=== PATIENT | female | born 1955 | race Caucasian/White ===

== ENCOUNTER 2016-10-10 16:38 | Emergency (ER) | payer BC ==
[2016-10-10] MEDS ORDERED: Albuterol/Ipratropium NEB.SOL* Albuterol 2.5 MG/Ipratropium 0.5 MG 3 ML INH ONE (17:17)
[2016-10-10 17:36] LABS: Hematocrit 45 % (35-47); Hemoglobin 14.9 g/dl (12.0-16.0); Mean Corpuscular HGB Conc 33 g/dl (31-36); Mean Corpuscular Hemoglobin 30 pg (27-31); Mean Corpuscular Volume 90 fL (80-97); Mean Platelet Volume 8 um3 (7.4-10.4); Red Blood Count 4.93 10^6/ul (4.0-5.4); Red Cell Distribution Width 13 % (10.5-15); White Blood Count 15.2 10^3/ul (3.5-10.8)
[2016-10-10 17:54] LABS: Albumin 3.9 g/dL (3.2-5.2); BUN/Creatinine Ratio 38.2 (8-20); C Reactive Protein 66.77 mg/L (< 5.00); Calcium 8.9 mg/dL (8.6-10.3); Globulin 2.8 g/dL (2-4); Magnesium 1.6 mg/dL (1.9-2.7); Potassium 3.8 mmol/L (3.5-5.0); Total Bilirubin 0.5 mg/dL (0.2-1.0); Total Protein 6.7 g/dL (6.4-8.9)
--- NOTE | 2016-10-10 18:00 | RAD ---
Indication: Shortness of breath, chest congestion. History of smoking. Comparison: April 09, 2008 Technique: Upright AP 1738 hours Report: Elevated lung volumes and mild prominence of interstitial markings. Costochondral calcifications noted. While costochondral calcification may account for the opacity a true approximate 1 cm pulmonary nodule in the RIGHT mid to lower lung zone is not excluded. Negative for pleural effusion. Negative for pneumothorax. The heart, pulmonary vasculature, and mediastinal contours are unremarkable. IMPRESSION: Stigmata of chronic obstructive pulmonary disease. No compelling evidence for pneumonia. While costochondral calcification may account for the opacity a true approximate 1 cm pulmonary nodule in the RIGHT mid to lower lung zone is not excluded. Consider dual energy PA and lateral chest radiographs for further assessment.
[2016-10-10] MEDS ORDERED: Azithromycin IV(*) 500 MG in NS 0.9% 250 ML* 250 ML IVPB ONE (18:07)
[2016-10-10] MEDS ORDERED: cefTRIAXone(*) 1 GM in NS 0.9% 50 ML* 50 ML IVPB ONE (18:07)
[2016-10-10 18:10] LABS: TSH (Thyroid Stimulating Horm) 2.68 mcIU/mL (0.34-5.60)
[2016-10-10] MEDS: NS 0.9% 1000 ML* 2,000 ML IV ONE (18:11)
[2016-10-10] MEDS ORDERED: Iohexol 350* (CONTRAST) 500 ML MDV IV ONE (18:27)
--- NOTE | 2016-10-10 19:22 | RAD ---
INDICATION: Body aches, shortness of breath, elevated d-dimer. COMPARISON: None. TECHNIQUE: Scott scale, color Doppler, and spectral analysis of the deep veins of the bilateral lower extremities. Vessel compression, phasicity, and augmentation assessed. REPORT: Poor tolerance for sonographic compression moderate limits assessment of the bilateral femoral veins. The right common femoral, great saphenous, profunda femoral, femoral, popliteal, peroneal, and posterior tibial veins are grossly patent. The left common femoral, great saphenous, profunda femoral, femoral, popliteal, peroneal, and posterior tibial veins are grossly patent. IMPRESSION: No compelling evidence for right or left lower extremity deep venous thrombosis.
[2016-10-10] MEDS ORDERED: methylPREDNISolone 125 MG* 2 ML VIAL IV ONE (20:18)
[2016-10-10] MEDS ORDERED: Albuterol HFA INHALER* 8 gm MDI INH ONE (20:20)
[2016-10-10] MEDS ORDERED: Rivaroxaban TAB(*) 15 MG PO ONE ×2 (20:22)
[2016-10-10 21:10] VITALS: BP 122/73
--- NOTE | 2016-10-10 23:01 | ED ---
Tanya Orellana Claudia, scribed for Luis F Farah MD on 10/10/16 at 1719 . Complex/Multi-Sys Presentation - HPI Summary HPI Summary: 61 year old female presents to the ED with multi-Sx. Pt notes that she woke up this am with sudden onset of Sx. Sx included overall body aches, SOB, and "hot flashes", diarrhea, and subjective fever. She denies any cough, nausea, vomiting , abd pain and wheezing. She notes no alleviation in her Sx even after taking Mucinex and Aleve earlier today. Pt describes her body aches as muscle spasms that could be from exercise except she doesn't exercise. Pt denies PMHx of Asthma or COPD. SHx: Heavy Tobacco Smoker - History Of Current Complaint Chief Complaint: EDShortnessOfBreath Time Seen by Provider: 10/10/16 17:07 Hx Obtained From: Patient Onset/Duration: Sudden Onset, Lasting Days - today, Still Present Timing: Constant Associated Signs And Symptoms: Positive: SOB, Diarrhea, Fever. Negative: Syncope, Cough, Nausea, Vomiting - Allergies/Home Medications Allergies/Adverse Reactions: Allergies Allergy/AdvReac Type Severity Reaction Status Date / Time No Known Allergies Allergy Verified 10/10/16 17:40 PMH/Surg Hx/FS Hx/Imm Hx Previously Healthy: Yes Endocrine/Hematology History: Denies: Hx Diabetes Cardiovascular History: Denies: Hx Hypertension Respiratory History: Denies: Hx Asthma, Hx Chronic Obstructive Pulmonary Disease (COPD) Infectious Disease History: No Infectious Disease History: Denies: Traveled Outside the [place] in Last 30 Days - Family History Family History: COPD,Asthma - Social History Lives: With Family Alcohol Use: None Hx Substance Use: No Substance Use Type: Reports: None Hx Tobacco Use: Yes Smoking Status (MU): Heavy Every Day Tobacco Smoker Review of Systems Positive: Fever Eyes: Negative ENT: Negative Cardiovascular: Negative Positive: Shortness Of Breath. Negative: Cough Positive: Diarrhea. Negative: Abdominal Pain, Vomiting, Nausea Genitourinary: Negative Musculoskeletal: Negative Skin: Negative Neurological: Negative Psychological: Normal All Other Systems Reviewed And Are Negative: Yes Physical Exam Triage Information Reviewed: Yes Vital Signs On Initial Exam: Initial Vitals Temp Pulse Resp BP Pulse Ox 99.6 F 111 24 123/78 95 10/10/16 16:43 10/10/16 16:43 10/10/16 16:43 10/10/16 16:43 10/10/16 16:43 Vital Signs Reviewed: Yes Appearance: Positive: Well-Appearing, No Pain Distress Skin: Positive: Warm, Skin Color Reflects Adequate Perfusion, Dry Head/Face: Positive: Normal Head/Face Inspection Eyes: Positive: EOMI, GARRISON ENT: Positive: Normal ENT inspection Neck: Positive: Supple, Nontender Respiratory/Lung Sounds: Positive: Breath Sounds Present, Wheezes - occasional, Other - mild respiratory distress Cardiovascular: Positive: RRR Abdomen Description: Positive: Nontender, Soft Musculoskeletal: Positive: Strength/ROM Intact Neurological: Positive: Normal, Sensory/Motor Intact, Alert, Oriented to Person Place, Time Psychiatric: Positive: Affect/Mood Appropriate Diagnostics - Vital Signs Vital Signs Temp Pulse Resp BP Pulse Ox 10/10/16 16:43 99.6 F 111 24 123/78 95 - Laboratory Lab Results: Lab Results 10/10/16 10/10/16 10/10/16 Range/Units 17:20 17:20 17:20 WBC 15.2 H (3.5-10.8) 10^3/ul RBC 4.93 (4.0-5.4) 10^6/ul Hgb 14.9 (12.0-16.0) g/dl Hct 45 (35-47) % MCV 90 (80-97) fL MCH 30 (27-31) pg MCHC 33 (31-36) g/dl RDW 13 (10.5-15) % Plt Count 364 (150-450) 10^3/ul MPV 8 (7.4-10.4) um3 Neut % (Auto) 89.0 H (38-83) % Lymph % (Auto) 4.1 L (25-47) % Hoke % (Auto) 6.2 (1-9) % Eos % (Auto) 0.5 (0-6) % Baso % (Auto) 0.2 (0-2) % Absolute Neuts (auto) 13.5 H (1.5-7.7) 10^3/ul Absolute Lymphs (auto) 0.6 L (1.0-4.8) 10^3/ul Absolute Monos (auto) 0.9 H (0-0.8) 10^3/ul Absolute Eos (auto) 0.1 (0-0.6) 10^3/ul Absolute Basos (auto) 0 (0-0.2) 10^3/ul Absolute Nucleated RBC 0 10^3/ul Nucleated RBC % 0 INR (Anticoag Therapy) 1.02 (0.89-1.11) APTT 28.2 (26.0-36.3) seconds D-Dimer, Quantitative 940 H (Less Than 230) ng/mL Sodium 131 L (133-145) mmol/L Potassium 3.8 (3.5-5.0) mmol/L Chloride 99 L (101-111) mmol/L Carbon Dioxide 26 (22-32) mmol/L Anion Gap 6 (2-11) mmol/L BUN 21 (6-24) mg/dL Creatinine 0.55 (0.51-0.95) mg/dL Est GFR ( Amer) 144.0 (>60) Est GFR (Non-Af Amer) 112.0 (>60) BUN/Creatinine Ratio 38.2 H (8-20) Glucose 117 H (70-100) mg/dL Lactic Acid (0.5-2.0) mmol/L Calcium 8.9 (8.6-10.3) mg/dL Magnesium 1.6 L (1.9-2.7) mg/dL Total Bilirubin 0.50 (0.2-1.0) mg/dL AST 19 (13-39) U/L ALT 25 (7-52) U/L Alkaline Phosphatase 89 (34-104) U/L Total Creatine Kinase 102 (10-223) U/L CK-MB (CK-2) 4.1 (0.6-6.3) ng/mL Troponin I 0.00 (<0.04) ng/mL C-Reactive Protein 66.77 H (< 5.00) mg/L B-Natriuretic Peptide ( - 100) pg/mL Total Protein 6.7 (6.4-8.9) g/dL Albumin 3.9 (3.2-5.2) g/dL Globulin 2.8 (2-4) g/dL Albumin/Globulin Ratio 1.4 (1-3) Lipase 20 (11.0-82.0) U/L TSH 2.68 (0.34-5.60) mcIU/mL Influenza A (Rapid) (Negative) Influenza B (Rapid) (Negative) 10/10/16 10/10/16 10/10/16 Range/Units 17:20 17:20 17:29 WBC (3.5-10.8) 10^3/ul RBC (4.0-5.4) 10^6/ul Hgb (12.0-16.0) g/dl Hct (35-47) % MCV (80-97) fL MCH (27-31) pg MCHC (31-36) g/dl RDW (10.5-15) % Plt Count (150-450) 10^3/ul MPV (7.4-10.4) um3 Neut % (Auto) (38-83) % Lymph % (Auto) (25-47) % Hoke % (Auto) (1-9) % Eos % (Auto) (0-6) % Baso % (Auto) (0-2) % Absolute Neuts (auto) (1.5-7.7) 10^3/ul Absolute Lymphs (auto) (1.0-4.8) 10^3/ul Absolute Monos (auto) (0-0.8) 10^3/ul Absolute Eos (auto) (0-0.6) 10^3/ul Absolute Basos (auto) (0-0.2) 10^3/ul Absolute Nucleated RBC 10^3/ul Nucleated RBC % INR (Anticoag Therapy) (0.89-1.11) APTT (26.0-36.3) seconds D-Dimer, Quantitative (Less Than 230) ng/mL Sodium (133-145) mmol/L Potassium (3.5-5.0) mmol/L Chloride (101-111) mmol/L Carbon Dioxide (22-32) mmol/L Anion Gap (2-11) mmol/L BUN (6-24) mg/dL Creatinine (0.51-0.95) mg/dL Est GFR ( Amer) (>60) Est GFR (Non-Af Amer) (>60) BUN/Creatinine Ratio (8-20) Glucose (70-100) mg/dL Lactic Acid 0.8 (0.5-2.0) mmol/L Calcium (8.6-10.3) mg/dL Magnesium (1.9-2.7) mg/dL Total Bilirubin (0.2-1.0) mg/dL AST (13-39) U/L ALT (7-52) U/L Alkaline Phosphatase (34-104) U/L Total Creatine Kinase (10-223) U/L CK-MB (CK-2) (0.6-6.3) ng/mL Troponin I (<0.04) ng/mL C-Reactive Protein (< 5.00) mg/L B-Natriuretic Peptide 13 ( - 100) pg/mL Total Protein (6.4-8.9) g/dL Albumin (3.2-5.2) g/dL Globulin (2-4) g/dL Albumin/Globulin Ratio (1-3) Lipase (11.0-82.0) U/L TSH (0.34-5.60) mcIU/mL Influenza A (Rapid) Negative (Negative) Influenza B (Rapid) Negative (Negative) Result Diagrams: 10/10/16 17:20 10/10/16 17:20 Lab Statement: Any lab studies that have been ordered have been reviewed, and results considered in the medical decision making process. - Radiology CXR Xray Interpretation: Positive (See Comments) - STIGMATA OF COPD. NO COMPELLING EVIDENCE FOR PNEUMONIA. WHILE COSTOCHONDRAL CALCIFICATION MAY ACCOUNT FOR THE OPACITY A TRUE APPROXIMATE 1CM PULMONARY NODEULE IN THE RIGHT MID TO LOWER LUNG ZONE IS NOT EXCLUDED. CONSIDER DUAL ENERGY PA AND LATERAL CHEST RADIOGRAPHS FOR FURTHER ASSESSMENT. Radiology Interpretation Completed By: Radiologist - EKG 1647 Cardiac Rate: Tachycardia EKG Rhythm: Sinus Tachycardia - 108 beats/min Ectopy: None EKG Interpretation: borderline T wave abnormalities - Additional Comments Diagnostic Additional Comments: VENOUS DOPPLER STUDY: NO EVIDENCE FOR RIGHT OR LEFT DEEP VEIN THROMBOSIS. Complex Multi-Symp Course/Dx Assessment/Plan: BREATHING/WHEEZING SX IMPROVED WITH DUONEB. DDIMER ELEVATED. PATIENT UNABLE TO HAVE CTA CHEST DUE TO CLAUSTROPHOBIA. SHE DECLINED ANXIETY MEDICATION (BENZODIAZEPINE) TO TRY THE CT. A V/Q SCAN IS ALSO ENCLOSED. WE DISCUSSED STARTING BLOOD THINNER BUT, WITH AN ELEVATED WBC, WHEEZING THAT IMPROVES WITH DUONEB, A POSSIBLE EARLY PNEUMONIA ON CXR, NO DVT IN EITHER LEG, NO PRIMARY CARE DOCTOR FOR ENSURED QUICK FOLLOW UP AND EVALUATION AND THE RISK OF BLEEDING ON A BLOOD THINNER WHEN THE DIAGNOSIS OF PE HAS NOT BEEN ESTABLISHED I DECIDED TO DO NO HARM AND NOT START A BLOOD THINNER. DISCHARGE HOME STABLE. - Diagnoses Provider Diagnoses: COPD with acute bronchitis, D-dimer, elevated - Physician Notifications Discussed Care Of Patient With: Discussed care of pt with Dr. German(radiologist ). Due to pt claustrophobia she is unable to recieve a CTA Chest after an elevated D-Dimer. Pt refused atavan to help with the possibility of recieving a CTA. Discussed with radiologist the possibility of a VQ scan but he notes that it is a similar small space. He also notes that CXR might be showing some early pneumonia but it is diffuclt to tell. It is then discussed with Dr. Reyna if pt should recieve a blood thinner and follow up with PCP but since pt does not have a PCP he does not advise it. Time Discussed With Above Provider: 20:29 Discharge - Discharge Plan Condition: Stable Disposition: HOME Prescriptions: Azithromycin TAB* [Zithromax TAB (Z-JENNIFER) 250 mg #6 tabs] 250 mg PO DAILY #4 tab predniSONE TAB* [Deltasone TAB*] 40 mg PO DAILY #8 tab Patient Education Materials: Acute Bronchitis (ED), COPD (Chronic Obstructive Pulmonary Disease) (ED), How to Use a Nebulizer (ED) Referrals: [facility] [Outside] Additional Instructions: FOLLOW UP WITH YOUR DOCTOR. USE THE ALBUTEROL 2 PUFFS EVERY 4 HOURS NEEDED. TAKE THE PREDNISONE DIRECTED. TAKE AZITHROMYCIN 250MG ONCE A DAY FOR 4 MORE DAYS. YOUR DDIMER WAS POSITIVE. DISCUSS THIS WITH YOUR DOCTOR. RETURN TO THE EMERGENCY DEPARTMENT FOR ANY WORSENING OF YOUR CONDITION OR QUESTIONS OR CONCERNS. The documentation as recorded by the Tanya gaytan Claudia accurately reflects the service I personally performed and the decisions made by me, Luis F Farah MD.
== END 2016-10-10 21:11 | disposition home or self-care (01) ==
LOC: ED 16:38
DX: J44.0 Chronic obstructive pulmonary disease with (acute) lower respiratory infection (principal); J20.9 Acute bronchitis, unspecified; R79.1 Abnormal coagulation profile; R06.02 Shortness of breath; R07.9 Chest pain, unspecified; R50.9 Fever, unspecified; R19.7 Diarrhea, unspecified; F17.210 Nicotine dependence, cigarettes, uncomplicated
CPT/HCPCS: 36415; 71010; 80053; 82550; 82553; 83605; 83690; 83735; 83880; 84443; 84484; 85025; 85379; 85610; 85730; 86140; 87040; 87502; 93005; 93970; 94640; 96374; 99284; A9270-GY; J0456; J0696; J2930

== ENCOUNTER 2019-02-24 11:41 | Emergency (ER) | payer BC, MEDICAID, OTHER ==
[2019-02-24] MEDS ORDERED: Albuterol/Ipratropium NEB.SOL* Albuterol 2.5 MG/Ipratropium 0.5 MG 3 ML INH ONE ×2 (12:05→14:44)
[2019-02-24] MEDS ORDERED: methylPREDNISolone 125 MG* 2 ML VIAL IV ONE (12:05)
--- NOTE | 2019-02-24 12:19 | ED ---
Shortness of Breath - HPI Summary HPI Summary: A 63 y/o female presents to [facility] with a chief complaint of SOB today. She thinks that she has bronchitis and claims that her inhalers are not working. She has been coughing up yellow phlegm but denies fevers, chills or CP. At triage she rated her pain as a 0/10 in severity. She says that she stopped smoking cigarettes but started to smoke E-cigarettes. She does not use O2 at home. She has a Hx of COPD. - History of Current Complaint Chief Complaint: EDShortnessOfBreath Time Seen by Provider: 02/24/19 12:05 Hx Obtained From: Patient Onset/Duration: Sudden Onset, Lasting Hours, Still Present Timing: Constant Current Severity: Mild Dyspnea At: Rest Aggravating Factors: Nothing Alleviating Factors: Nothing Associated Signs & Symptoms: Cough (Productive) - Allergy/Home Medications Allergies/Adverse Reactions: Allergies Allergy/AdvReac Type Severity Reaction Status Date / Time No Known Allergies Allergy Verified 02/24/19 11:47 PMH/Surg Hx/FS Hx/Imm Hx Endocrine/Hematology History: Denies: Hx Diabetes Cardiovascular History: Denies: Hx Hypertension Respiratory History: Denies: Hx Asthma, Hx Chronic Obstructive Pulmonary Disease (COPD) Infectious Disease History: No Infectious Disease History: Denies: Traveled Outside the [place] in Last 30 Days - Family History Known Family History: Positive: Respiratory Disease - COPD, Asthma Family History: COPD,Asthma - Social History Alcohol Use: None Hx Substance Use: No Substance Use Type: Reports: None Hx Tobacco Use: Yes Smoking Status (MU): Heavy Every Day Tobacco Smoker Review of Systems Negative: Fever, Chills Negative: Chest Pain Positive: Shortness Of Breath, Cough All Other Systems Reviewed And Are Negative: Yes Physical Exam - Summary Physical Exam Summary: VITAL SIGNS: Reviewed. GENERAL: Patient is a well-developed and nourished FEMALE who is lying comfortable in the stretcher. Patient is in some respiratory distress but is able to speak in full sentences. HEAD AND FACE: No signs of trauma. No ecchymosis, hematomas or skull depressions. No sinus tenderness. EYES: PERRLA, EOMI x 2, No injected conjunctiva, no nystagmus. EARS: Hearing grossly intact. Ear canals and tympanic membranes are within normal limits. MOUTH: Oropharynx within normal limits. NECK: Supple, trachea is midline, no adenopathy, no JVD, no carotid bruit, no c- spine tenderness, neck with full ROM. CHEST: Symmetric, no tenderness at palpation. LUNGS: decreased breath sounds bilaterally, diffuse wheezing CVS: Regular rate and rhythm, S1 and S2 present, no murmurs or gallops appreciated. ABDOMEN: Soft, non-tender. No signs of distention. No rebound, no guarding, and no masses palpated. Bowel sounds are normal. EXTREMITIES: FROM in all major joints, no edema, no cyanosis or clubbing. NEURO: Alert and oriented x 3. No acute neurological deficits. Speech is normal and follows commands. SKIN: Dry and warm. Triage Information Reviewed: Yes Vital Signs On Initial Exam: Initial Vitals Temp Pulse Resp BP Pulse Ox 97.2 F 115 26 181/112 65 02/24/19 11:42 02/24/19 11:42 02/24/19 11:42 02/24/19 11:42 02/24/19 11:42 Vital Signs Reviewed: Yes Diagnostics - Vital Signs Vital Signs Temp Pulse Resp BP Pulse Ox 02/24/19 11:42 97.2 F 115 26 181/112 65 - Laboratory Result Diagrams: 02/24/19 12:25 02/24/19 12:25 Lab Statement: Any lab studies that have been ordered have been reviewed, and results considered in the medical decision making process. - Radiology CXR Radiology Interpretation Completed By: Radiologist Summary of Radiographic Findings: HYPERINFLATION. NO ACTIVE CARDIOPULMONARY DISEASE. ED physician has reviewed this imaging report. - EKG 13:06 Cardiac Rate: NL - 93 bpm EKG Rhythm: Sinus Rhythm ST Segment: Normal EKG Comparison: No Significant Change Summary of EKG Findings: NSR at [address] elevations similar to previous done 10/10/16. Re-Evaluation - Re-Evaluation First Eval Re-Evaluation Time: 14:45 Change: Improved Comment: Pt is feeling a lot better but she is still wheezing, so she will be given another breathing treatment. Course/Dx - Course Assessment/Plan: A 63 y/o female presents to [facility] with a chief complaint of SOB today. She thinks that she has bronchitis and claims that her inhalers are not working. She has been coughing up yellow phlegm but denies fevers, chills or CP. At triage she rated her pain as a 0/10 in severity. She says that she stopped smoking cigarettes but started to smoke E-cigarettes. She does not use O2 at home. She has a Hx of COPD. Blood test results without any significant abnormality except for the bases of 14.8, RBCs 5.6, hematocrit 48, absolute is 12.5. Leukocytes is 124, alkaline phosphatase 111, CRP is 8.04. Chest x-ray impression: Hyperinflation. No active cardiopulmonary disease. In the ED course the patient was given multiple door last and Solu-Medrol. Patient was given additional doses of DuoNebs and now the patient is feeling better. The patient saturating between 94 and 95% on room air. She will be discharged home with follow-up with PCP. Patient was instructed to return to the emergency department if she develops any worsening symptoms. The patient understands and agrees. The patient has this productive cough with yellowish phlegm therefore I placed the patient in azithromycin for bronchitis. I discussed all the findings and test results with the patient. Patient was instructed to return to the emergency room immediately if any of the symptoms return worsens. Plan of care was discussed with the patient and understands and agrees. All questions were answered at patient satisfaction. There were no further complaints or concerns. Lung exam before discharge: CTA B/L. Good air exchange. No wheezing or crackles heard. CVS: S1 and S2 present. No murmurs appreciated. Patient is alert and oriented x 3. Patient is hemodynamically stable. Patient will be discharged home with follow up PCP in the next 2-3 days - Diagnoses Provider Diagnoses: COPD exacerbation Discharge - Sign-Out/Discharge Documenting (check all that apply): Patient Departure - DC Patient Received Moderate/Deep Sedation with Procedure: No - Discharge Plan Condition: Stable Disposition: HOME Prescriptions: Azithromycin TAB* [Zithromax TAB (Z-JENNIFER) 250 mg #6 tabs] 250 mg PO DAILY #4 tab predniSONE TAB* [Deltasone 20 MG TAB*] 40 mg PO DAILY #8 tab Patient Education Materials: COPD (Chronic Obstructive Pulmonary Disease) (DC) Referrals: [facility] [Outside] (2-3 days) Additional Instructions: FOLLOW UP WITH YOUR PRIMARY CARE PROVIDER WITHIN 2-3 DAYS. RETURN TO THE ED FOR ANY WORSENING OR NEW SYMPTOMS. - Billing Disposition and Condition Condition: STABLE Disposition: Home - Attestation Statements Document Initiated by Scribe: Yes Documenting Scribe: Jabari Kaplan Provider For Whom Scribe is Documenting (Include Credential): Venkata Broussard MD Scribe Attestation: I, Jabari Kaplan, scribed for Venkata Broussard MD on 02/25/19 at 2022. Scribe Documentation Reviewed: Yes Provider Attestation: The documentation as recorded by the [email or web address] accurately reflects the service I personally performed and the decisions made by me, Venkata Brousasrd MD Status of Scribe Document: Viewed
[2019-02-24 12:37] LABS: Hematocrit 48 % (35-47); Mean Corpuscular HGB Conc 33 g/dL (31-36); Mean Corpuscular Hemoglobin 31 pg (27-31); Mean Corpuscular Volume 92 fL (80-97); Mean Platelet Volume 7.6 fL (7.4-10.4); Platelet Count 419 10^3/uL (150-450); Red Blood Count 5.26 10^6 /uL (3.70-4.87); Red Cell Distribution Width 14 % (10-15); White Blood Count 14.8 10^3/uL (3.5-10.8)
[2019-02-24 12:51] LABS: INR 0.98 (0.82-1.09)
[2019-02-24 12:57] LABS: Albumin 4.4 g/dL (3.2-5.2); Albumin/Globulin Ratio 1.6 (1-3); BUN/Creatinine Ratio 24.6 (8-20); C Reactive Protein 8.04 mg/L (<8.01); Calcium 9.6 mg/dL (8.6-10.3); EGFR African American 129.2 (>60); EGFR Non-African American 106.8 (>60); Globulin 2.8 g/dL (2-4); Potassium 4.2 mmol/L (3.5-5.0); Total Bilirubin 0.3 mg/dL (0.2-1.0); Total Protein 7.2 g/dL (6.4-8.9)
[2019-02-24 13:02] LABS: CKMB ng/mL 8.4 ng/mL (0.6-6.3)
[2019-02-24 13:07] LABS: ABS Eosinophils 0.4 10^3/ul (0-0.6); ABS Monocytes 0.8 10^3/ul (0-0.8); ABS Neutrophils 12.5 10^3/ul (1.5-7.7); Eosinophil % 2.8 %; Nucleated Red Blood Cells % 0.1
[2019-02-24 17:02] VITALS: BP 140/80
== END 2019-02-24 17:04 | disposition home or self-care (01) ==
LOC: ED 11:41
DX: J44.1 Chronic obstructive pulmonary disease with (acute) exacerbation (principal); R05 Cough; R06.02 Shortness of breath; F17.210 Nicotine dependence, cigarettes, uncomplicated
CPT/HCPCS: 36415; 71046; 80053; 82550; 82553; 83605; 83880; 84484; 85025; 85610; 85730; 86140; 87040; 93005; 96374; 99283; A9270-GY; J2930

== ENCOUNTER 2024-09-13 15:50 | Inpatient (IN) ==
[2024-09-13] MEDS: Dexamethasone IV 4 MG/ML VIAL 1 ml VIAL IV SLOW PU ONE (16:26)
[2024-09-13] MEDS: Albuterol/Ipratropium NEB.SOL (2.5/0.5 MG) 3 ML NEB.SOLN INH ONE (16:29)
[2024-09-13 16:31] LABS: ABS Lymphocytes 0.5 10^3/uL (1.0-4.8); ABS Monocytes 0.4 10^3/uL (0.0-0.9); ABS Neutrophils 11.5 10^3/uL (1.5-7.6); Eosinophil % 0.1 %; Hematocrit 34.6 % (35-45); Hemoglobin 11.3 g/dL (11.5-14.3); Mean Corpuscular Hemoglobin 29.8 pg (27-33); Mean Corpuscular Hgb Conc 32.6 g/dL (31-36); Mean Corpuscular Volume 91.5 fL (80-97); Mean Platelet Volume 6.8 fL (7.5-11.2); Platelet Count 690 10^3/uL (150-450); Red Blood Count 3.78 10^6/uL (3.63-4.92); Red Cell Distribution Width 14.5 % (12-17); White Blood Count 12.5 10^3/uL (3.8-11.8)
[2024-09-13 16:40] LABS: INR 2.81 (0.85-1.14)
[2024-09-13 16:57] LABS: Venous Bicarbonate HCO3 34.4 mmol/L (24-28)
[2024-09-13] MEDS: Furosemide 40 mg/4 ml IV VIAL IV SLOW PU ONE (17:05)
[2024-09-13 17:08] LABS: Albumin 3.6 g/dL (3.5-5.7); Albumin/Globulin Ratio 1.6 (1-3); Calcium 8.9 mg/dL (8.6-10.3); Creatinine, Serum 0.34 mg/dL (0.51-0.95); Globulin 2.2 g/dL (2-4); Potassium 4.3 mmol/L (3.5-5.0); Total Bilirubin 0.4 mg/dL (0.2-1.0); Total Protein 5.8 g/dL (6.4-8.9); eGFR CKD-EPI 110.7 (>60)
[2024-09-13] MEDS ORDERED: Acetylcysteine INH SOL (RT) 200 MG/ML 4 ML VIAL INH ONE (17:39)
[2024-09-13] MEDS: cefTRIAXone 1 gm/50 mL D5W 1 GM/50 ML BAG IV ONE (17:42)
[2024-09-13] MEDS: Albuterol 2.5mg/3 ml (0.083%) NEB.SOLN INH ONE (17:43)
[2024-09-13] MEDS: Acetylcysteine INH SOL (RT) 200 MG/ML 4 ML VIAL INH ONE (17:43)
[2024-09-13 17:49] LABS: High Sensitivity Troponin 1 Hr 6 pg/mL (<15)
[2024-09-13] MEDS: Azithromycin 500 mg/250 ml NS 500 MG/250 ML BAG IVPB ONE (17:57)
[2024-09-13 18:13] LABS: Urine Appearance Clear; Urine Bilirubin Negative (Negative); Urine Blood Negative (Negative); Urine Color Light-Yellow; Urine Glucose Negative (Negative); Urine Ketones Negative (Negative); Urine Nitrite Negative (Negative); Urine Protein Negative (Negative); Urine Specific Gravity 1.008 (1.002-1.030); Urine Urobilinogen Negative (Negative)
[2024-09-13 19:23] LABS: PO2 Arterial 79 mmHg (80-100)
[2024-09-13 19:25] LABS: PCO2 Arterial 72 mmHg (35-45)
[2024-09-13 20:31] LABS: C Reactive Protein 13.31 mg/L (<8.01); Magnesium 1.9 mg/dL (1.9-2.7)
[2024-09-13] MEDS ORDERED: Albuterol (2.5 MG) 0.5 % CONC 0.5 ML NEB.SOLN INH PRN (21:06)
[2024-09-13] MEDS: Iohexol 350 (CONTRAST) 500 ML MDV IV ONE (22:27)
[2024-09-14 05:19] LABS: Hematocrit 29.7 % (35-45); Hemoglobin 10.1 g/dL (11.5-14.3); Mean Platelet Volume 6.8 fL (7.5-11.2); Platelet Count 576 10^3/uL (150-450)
[2024-09-14 05:37] LABS: INR 3.76 (0.85-1.14)
[2024-09-14] MEDS ORDERED: Sulfur Hexaflouride MICROSPHR 25 MG VIAL IV PRN (05:40)
[2024-09-14] MEDS ORDERED: Nicotine PATCH 21 MG/24 HR PATCH TRANSDERM PRN (05:46)
[2024-09-14 07:13] LABS: Albumin 3.1 g/dL (3.5-5.7); Albumin/Globulin Ratio 1.5 (1-3); Calcium 8.4 mg/dL (8.6-10.3); Creatinine, Serum 0.34 mg/dL (0.51-0.95); Globulin 2.1 g/dL (2-4); Magnesium 1.8 mg/dL (1.9-2.7); Potassium 4.4 mmol/L (3.5-5.0); Total Bilirubin 0.3 mg/dL (0.2-1.0); Total Protein 5.2 g/dL (6.4-8.9); eGFR CKD-EPI 110.7 (>60)
[2024-09-14 07:38] LABS: % Iron Saturation 7 % (15-55); .Transferrin 211 mg/dL (203-362); Cholesterol 129 mg/dL; Iron < 20 ug/dL (50-212); LDL Cholesterol 55 mg/dL; Total Iron Binding Capacity 295 mcg/dL (250-450); Triglycerides 82 mg/dL; Unsaturated Iron Binding 275 ug/dL
[2024-09-14 07:54] LABS: TSH Ultra Thyroid Stim Horm 0.13 mcIU/mL (0.34-5.60)
[2024-09-14 08:02] LABS: Ferritin 38.3 ng/mL (11-307)
[2024-09-14 08:05] LABS: Folate > 20.00 ng/mL (5.90-24.80)
[2024-09-14 08:06] LABS: Vitamin B12 > 1450 pg/mL (180-914)
[2024-09-14] MEDS: SPIRIVA Respimat (tiotropium) 2.5 mcg/inh Inhaler INH SCH (08:23)
[2024-09-14] MEDS: Magnesium Sulfate 2 gm BAG 2 GM/50 ML BAG IVPB ONE (09:30)
[2024-09-14 10:43] LABS: Mean Corpuscular Hemoglobin 30.2 pg (27-33); Mean Corpuscular Hgb Conc 33.2 g/dL (31-36); Red Blood Count 3.34 10^6/uL (3.63-4.92); Red Cell Distribution Width 14.3 % (12-17); White Blood Count 6.7 10^3/uL (3.8-11.8)
[2024-09-14] MEDS: Warfarin DAILY REMINDER **NOTE FOLLOW UP SCH (16:43)
[2024-09-14] MEDS: Warfarin - No Order Today **NOTE FOLLOW UP ONE (16:43)
[2024-09-14] MEDS: Warfarin per PHARMACY **NOTE FOLLOW UP SCH (16:44)
[2024-09-14] MEDS: cefTRIAXone 1 gm/50 mL D5W 1 GM/50 ML BAG IV SCH (17:40)
[2024-09-15] MEDS ORDERED: Albuterol 2.5mg/3 ml (0.083%) NEB.SOLN INH PRN (01:23)
[2024-09-15] MEDS: Polyethylene Glycol 3350 17 GM PACKET PO PRN (04:16)
[2024-09-15 06:03] LABS: INR 2.12 (0.85-1.14)
[2024-09-15 06:04] LABS: Hematocrit 31.2 % (35-45); Hemoglobin 10.5 g/dL (11.5-14.3); Mean Corpuscular Hemoglobin 30.4 pg (27-33); Mean Corpuscular Hgb Conc 33.6 g/dL (31-36); Mean Corpuscular Volume 90.4 fL (80-97); Mean Platelet Volume 7.2 fL (7.5-11.2); Platelet Count 675 10^3/uL (150-450); Red Blood Count 3.45 10^6/uL (3.63-4.92); Red Cell Distribution Width 14.5 % (12-17); White Blood Count 16.7 10^3/uL (3.8-11.8)
[2024-09-15 06:24] LABS: ABS Lymphocytes 0.8 10^3/uL (1.0-4.8); ABS Monocytes 1.7 10^3/uL (0.0-0.9); ABS Neutrophils 14.2 10^3/uL (1.5-7.6); ABS Nucleated RBC 0.01 10^3/ul; Eosinophil % 0.3 %; Lymphocyte % 4.5 %
[2024-09-15 06:26] LABS: ALT 34 U/L (7-52); AST 24 U/L (13-39); Albumin 3.3 g/dL (3.5-5.7); Albumin/Globulin Ratio 1.7 (1-3); Alkaline Phosphatase 113 U/L (35-149); Blood Urea Nitrogen 10 mg/dL (6-24); CO2 Carbon Dioxide > 45 mmol/L (22-32); Calcium 8.6 mg/dL (8.6-10.3); Chloride 91 mmol/L (101-111); Creatinine, Serum < 0.30 mg/dL (0.51-0.95); Globulin 1.9 g/dL (2-4); Glucose 102 mg/dL (70-100); Magnesium 2.2 mg/dL (1.9-2.7); Potassium 3.8 mmol/L (3.5-5.0); Sodium 139 mmol/L (135-145); Total Bilirubin 0.3 mg/dL (0.2-1.0); Total Protein 5.2 g/dL (6.4-8.9)
[2024-09-15] MEDS ORDERED: Magnesium Hydroxide LIQ 30 ML UDC PO PRN (07:47)
[2024-09-15] MEDS ORDERED: Senna TAB 8.6 mg TAB PO PRN (07:47)
[2024-09-15] MEDS: Magnesium Hydroxide LIQ 30 ML UDC PO SCH (08:31)
[2024-09-15] MEDS: Albuterol/Ipratropium NEB.SOL (2.5/0.5 MG) 3 ML NEB.SOLN INH PRN (08:45)
[2024-09-15 08:46] LABS: PCO2 Arterial 87 mmHg (35-45); PO2 Arterial 67 mmHg (80-100)
[2024-09-15] MEDS: Albuterol/Ipratropium NEB.SOL (2.5/0.5 MG) 3 ML NEB.SOLN INH SCH (13:30)
[2024-09-16 06:51] LABS: ABS Eosinophils 0.1 10^3/uL (0.0-0.5); ABS Monocytes 1.5 10^3/uL (0.0-0.9); ABS Neutrophils 12.6 10^3/uL (1.5-7.6); Eosinophil % 0.8 %; Hematocrit 31.2 % (35-45); Hemoglobin 10.4 g/dL (11.5-14.3); Lymphocyte % 6.7 %; Mean Corpuscular Hemoglobin 30.1 pg (27-33); Mean Corpuscular Hgb Conc 33.3 g/dL (31-36); Mean Corpuscular Volume 90.4 fL (80-97); Mean Platelet Volume 7.4 fL (7.5-11.2); Platelet Count 609 10^3/uL (150-450); Red Blood Count 3.45 10^6/uL (3.63-4.92); Red Cell Distribution Width 14.3 % (12-17); White Blood Count 15.3 10^3/uL (3.8-11.8)
[2024-09-16 06:54] LABS: INR 1.83 (0.85-1.14)
[2024-09-16 07:16] LABS: Anion Gap 3 mmol/L (2-16); Blood Urea Nitrogen 11 mg/dL (6-24); CO2 Carbon Dioxide 44 mmol/L (22-32); Calcium 8.6 mg/dL (8.6-10.3); Chloride 92 mmol/L (101-111); Creatinine, Serum < 0.30 mg/dL (0.51-0.95); Glucose 107 mg/dL (70-100); Magnesium 2.3 mg/dL (1.9-2.7); Potassium 4.4 mmol/L (3.5-5.0); Sodium 139 mmol/L (135-145)
[2024-09-16 11:23] LABS: Venous Bicarbonate HCO3 44.2 mmol/L (24-28)
[2024-09-17] MEDS: Albuterol/Ipratropium NEB.SOL (2.5/0.5 MG) 3 ML NEB.SOLN INH SCH (01:37)
[2024-09-17 05:46] LABS: ABS Basophils 0.1 10^3/uL (0.0-0.1); ABS Lymphocytes 0.8 10^3/uL (1.0-4.8); ABS Neutrophils 11.4 10^3/uL (1.5-7.6); Eosinophil % 0.4 %; Hematocrit 31.4 % (35-45); Hemoglobin 10.2 g/dL (11.5-14.3); Lymphocyte % 6.3 %; Mean Corpuscular Hemoglobin 29.2 pg (27-33); Mean Corpuscular Hgb Conc 32.4 g/dL (31-36); Mean Corpuscular Volume 90.3 fL (80-97); Mean Platelet Volume 7.4 fL (7.5-11.2); Platelet Count 594 10^3/uL (150-450); Red Blood Count 3.48 10^6/uL (3.63-4.92); Red Cell Distribution Width 14.4 % (12-17); White Blood Count 13.3 10^3/uL (3.8-11.8)
[2024-09-17 05:51] LABS: INR 2.04 (0.85-1.14)
[2024-09-17 06:14] LABS: Anion Gap 7 mmol/L (2-16); Blood Urea Nitrogen 11 mg/dL (6-24); CO2 Carbon Dioxide 33 mmol/L (22-32); Calcium 8.5 mg/dL (8.6-10.3); Chloride 97 mmol/L (101-111); Creatinine, Serum < 0.30 mg/dL (0.51-0.95); Glucose 108 mg/dL (70-100); Magnesium 2.4 mg/dL (1.9-2.7); Phosphorus 3.4 mg/dL (2.5-5.0); Potassium 4.4 mmol/L (3.5-5.0); Sodium 137 mmol/L (135-145)
[2024-09-17] MEDS ORDERED: Albuterol/Ipratropium NEB.SOL (2.5/0.5 MG) 3 ML NEB.SOLN INH PRN (06:54)
[2024-09-17] MEDS: Ferric Gluconate IV 250 MG in NS 0.9% 250 ml 200 ML IVPB SCH (09:16)
[2024-09-17 12:26] VITALS: BP 122/63
== END 2024-09-17 14:20 | disposition home or self-care (01) | DRG 189 ==
LOC: ED 15:50 → EDHOLD 20:12 → SUATTDRO 20:12 → ICU 20:53 → MEDTELE 09-14 23:57 → ICU 09-15 10:25 → MED 09-16 02:37
PROVIDERS: ADMIT Internal Medicine; ATTEND Student in an Organized Health Care Education/Training Program

== ENCOUNTER 2024-09-17 18:01 | Inpatient (IN) ==
[2024-09-17] MEDS ORDERED: Albuterol/Ipratropium NEB.SOL (2.5/0.5 MG) 3 ML NEB.SOLN INH PRN (21:32)
[2024-09-18 06:13] LABS: ABS Eosinophils 0.2 10^3/uL (0.0-0.5); ABS Lymphocytes 1.5 10^3/uL (1.0-4.8); ABS Neutrophils 6.8 10^3/uL (1.5-7.6); Eosinophil % 2.3 %; Hematocrit 31.4 % (35-45); Hemoglobin 10.3 g/dL (11.5-14.3); Lymphocyte % 15.7 %; Mean Corpuscular Hemoglobin 29.5 pg (27-33); Mean Corpuscular Hgb Conc 32.8 g/dL (31-36); Mean Corpuscular Volume 89.9 fL (80-97); Mean Platelet Volume 7.4 fL (7.5-11.2); Platelet Count 638 10^3/uL (150-450); Red Blood Count 3.49 10^6/uL (3.63-4.92); Red Cell Distribution Width 14.3 % (12-17); White Blood Count 9.5 10^3/uL (3.8-11.8)
[2024-09-18 07:01] LABS: INR 1.67 (0.85-1.14)
[2024-09-18] MEDS: SPIRIVA Respimat (tiotropium) 2.5 mcg/inh Inhaler INH SCH (07:32)
[2024-09-18 08:13] LABS: Blood Urea Nitrogen 15 mg/dL (6-24); CO2 Carbon Dioxide 36 mmol/L (22-32); Calcium 8.9 mg/dL (8.6-10.3); Chloride 102 mmol/L (101-111); Creatinine, Serum 0.38 mg/dL (0.51-0.95); Glucose 76 mg/dL (70-100); Magnesium 2.1 mg/dL (1.9-2.7); Phosphorus 3.6 mg/dL (2.5-5.0); Potassium 4.4 mmol/L (3.5-5.0); Sodium 136 mmol/L (135-145); eGFR CKD-EPI 107.7 (>60)
[2024-09-18] MEDS ORDERED: Albuterol 2.5mg/3 ml (0.083%) NEB.SOLN INH PRN (09:00)
[2024-09-18] MEDS: Enoxaparin 80 MG/0.8 ML SYR SUBCUT SCH (10:33)
[2024-09-18] MEDS: Ferric Gluconate IV 250 MG in NS 0.9% 250 ml 200 ML IVPB SCH (10:36)
[2024-09-18] MEDS ORDERED: Ondansetron 4 mg VIAL 2 MG/ML 2 ml VIAL IV PRN (14:06)
[2024-09-18] MEDS ORDERED: Naloxone 0.4 mg VIAL 0.4 mg/ml 1 ml VIAL IV PRN (14:06)
[2024-09-18] MEDS ORDERED: fentaNYL 100 mcg/2 ml 50 MCG/ML VIAL IV PRN (14:06)
[2024-09-19 06:25] LABS: ABS Basophils 0.1 10^3/uL (0.0-0.1); ABS Eosinophils 0.1 10^3/uL (0.0-0.5); ABS Lymphocytes 1.8 10^3/uL (1.0-4.8); ABS Monocytes 1.2 10^3/uL (0.0-0.9); ABS Neutrophils 7.7 10^3/uL (1.5-7.6); ABS Nucleated RBC 0.01 10^3/ul; Eosinophil % 0.9 %; Hematocrit 31.5 % (35-45); Hemoglobin 10.6 g/dL (11.5-14.3); Lymphocyte % 16.7 %; Mean Corpuscular Hemoglobin 30.5 pg (27-33); Mean Corpuscular Hgb Conc 33.8 g/dL (31-36); Mean Corpuscular Volume 90.3 fL (80-97); Mean Platelet Volume 7.7 fL (7.5-11.2); Nucleated Red Blood Cells % 0.1 %/100WBC (0.0-0.8); Platelet Count 671 10^3/uL (150-450); Red Blood Count 3.49 10^6/uL (3.63-4.92); Red Cell Distribution Width 14.1 % (12-17); White Blood Count 10.9 10^3/uL (3.8-11.8)
[2024-09-19 06:31] LABS: INR 1.22 (0.85-1.14)
[2024-09-19 06:55] LABS: Calcium 9.1 mg/dL (8.6-10.3); Creatinine, Serum 0.38 mg/dL (0.51-0.95); Magnesium 1.9 mg/dL (1.9-2.7); Potassium 4.4 mmol/L (3.5-5.0); eGFR CKD-EPI 107.7 (>60)
[2024-09-19] MEDS: Buffered Lidocaine 1% SYRIN 1 ml INTRADERM ONE (16:35)
[2024-09-19] MEDS ORDERED: Levalbuterol 1.25MG/0.5ML NEB.SOL ONE (16:49)
[2024-09-19] MEDS ORDERED: ceFAZolin 2 GM PREMIX 2 GM/50 ML BAG ONE (16:49)
[2024-09-19] MEDS ORDERED: Famotidine IV 10 MG/ML 2 ml VIAL (20 mg) ONE (16:49)
[2024-09-19] MEDS ORDERED: Midazolam 2 mg/2 ml VIAL 1 mg/ml 2 ml VIAL (2 mg) ONE (16:52)
[2024-09-19] MEDS ORDERED: Propofol 10 MG/ML 20 ML BTL ONE (16:52)
[2024-09-19] MEDS ORDERED: Dexamethasone IV 4 MG/ML VIAL 1 ml VIAL ONE (16:52)
[2024-09-19] MEDS ORDERED: fentaNYL 100 mcg/2 ml 50 MCG/ML VIAL ONE ×2 (16:52→18:25)
[2024-09-19] MEDS ORDERED: Rocuronium 50 mg VIAL 10 mg/ml 5 ml VIAL (50 mg) ONE (16:52)
[2024-09-19] MEDS ORDERED: Ondansetron 4 mg VIAL 2 MG/ML 2 ml VIAL ONE (16:52)
[2024-09-19] MEDS ORDERED: Lidocaine 2% PF 5 ML VIAL ONE (16:52)
[2024-09-19] MEDS: Levalbuterol 1.25MG/0.5ML NEB.SOL INH ONE (16:54)
[2024-09-19] MEDS: Lactated Ringers 1000 ml BAG 1,000 ML IV SCH (16:54)
[2024-09-19] MEDS: Famotidine IV 10 MG/ML 2 ml VIAL (20 mg) IV ONE (16:54)
[2024-09-19] MEDS ORDERED: Tranexamic Acid 1 GM/100ML BAG 2,000 MG/200 ML BAG IV ONE (17:05)
[2024-09-19] MEDS ORDERED: Ondansetron 4 mg VIAL 2 MG/ML 2 ml VIAL IV PRN (21:04)
[2024-09-19] MEDS ORDERED: Morphine 2 MG/ML SYRINGE IV PRN (21:04)
[2024-09-19] MEDS ORDERED: Senna TAB 8.6 mg TAB PO PRN (21:04)
[2024-09-19] MEDS ORDERED: Magnesium Hydroxide LIQ 30 ML UDC PO PRN (21:04)
[2024-09-19] MEDS ORDERED: Polyethylene Glycol 3350 17 GM PACKET PO PRN (21:04)
[2024-09-19] MEDS: Magnesium Hydroxide LIQ 30 ML UDC PO SCH (23:11)
[2024-09-20] MEDS: ceFAZolin 2 GM PREMIX 2 GM/50 ML BAG IV SCH (02:10)
[2024-09-20] MEDS: Lactated Ringers 1000 ml BAG 1,000 ML IV SCH (03:03)
[2024-09-20 06:46] LABS: ABS Lymphocytes 0.8 10^3/uL (1.0-4.8); ABS Monocytes 0.8 10^3/uL (0.0-0.9); ABS Neutrophils 14.1 10^3/uL (1.5-7.6); Hemoglobin 9.5 g/dL (11.5-14.3); Lymphocyte % 5.3 %; Mean Corpuscular Hemoglobin 30.3 pg (27-33); Mean Corpuscular Hgb Conc 33.9 g/dL (31-36); Mean Corpuscular Volume 89.4 fL (80-97); Mean Platelet Volume 7.4 fL (7.5-11.2); Platelet Count 602 10^3/uL (150-450); Red Blood Count 3.13 10^6/uL (3.63-4.92); White Blood Count 15.7 10^3/uL (3.8-11.8)
[2024-09-20 07:01] LABS: Calcium 8.6 mg/dL (8.6-10.3); Creatinine, Serum 0.44 mg/dL (0.51-0.95); Potassium 4.5 mmol/L (3.5-5.0)
[2024-09-20 07:10] LABS: INR 1.14 (0.85-1.14)
[2024-09-20] MEDS: Enoxaparin 80 MG/0.8 ML SYR SUBCUT SCH (11:20)
[2024-09-20] MEDS: Nicotine PATCH 14 MG/24 HR PATCH TRANSDERM SCH (13:04)
[2024-09-20 13:58] VITALS: BP 110/55
[2024-09-20] MEDS ORDERED: Warfarin per PHARMACY **NOTE FOLLOW UP SCH (17:00)
[2024-09-20] MEDS: Warfarin DAILY REMINDER **NOTE FOLLOW UP SCH (17:02)
== END 2024-09-20 17:50 | disposition home or self-care (01) | DRG 481 ==
LOC: MED 19:39 → SUATTDRO 19:39 → SSU 09-19 20:23
PROVIDERS: ADMIT Student in an Organized Health Care Education/Training Program; ATTEND Student in an Organized Health Care Education/Training Program